=== PATIENT | female | born 1970 | race Caucasian/White ===

== ENCOUNTER 2022-09-03 09:56 | Day surgery (SDC) | payer OTHER ==
[2022-08-29 12:13] VITALS: BMI 27.4
[2022-09-03] MEDS ORDERED: LIDOCAINE HCL 2% (20ML MULTI-DOSE VIAL) ONE (11:45)
[2022-09-03] MEDS ORDERED: PROPOFOL 20 ML ONE ×2 (11:54→12:20)
[2022-09-03] MEDS ORDERED: MIDAZOLAM HCL 2 MG/2 ML SINGLE DOSE VIAL ONE (11:54)
[2022-09-03] MEDS ORDERED: DEXAMETHASONE SOD PHOSPHATE 4 MG/1 ML VIAL ONE (11:55)
[2022-09-03] MEDS ORDERED: ONDANSETRON 4 MG/2 ML VIAL ONE (11:55)
[2022-09-03] MEDS ORDERED: KETOROLAC TROMETHAMINE 30 MG/1 ML VIAL ONE (12:29)
[2022-09-03] MEDS ORDERED: oxyCODONE HCL 5 MG TABLET PO PRN (13:09)
[2022-09-03] MEDS ORDERED: ONDANSETRON 4 MG/2 ML VIAL IVPUSH PRN (13:09)
[2022-09-03] MEDS ORDERED: LACTATED RINGERS SOLUTION 1,000 ML IV SCH (13:15)
[2022-09-03 14:16] VITALS: RESP 18; TEMP 97.9
[2022-09-03 15:02] VITALS: BP 129/78
[2022-09-03 15:03] VITALS: PULSE 80
== END 2022-09-03 14:45 | disposition home or self-care (01) ==
LOC: FASU 09:56
PROVIDERS: ATTEND Orthopaedic Surgery Hand Surgery
PROC: 0LB60ZZ Excision of Left Lower Arm and Wrist Tendon, Open Approach (ICD-10-PCS; 2022-09-03)
PROC: 0RBP0ZZ Excision of Left Wrist Joint, Open Approach (ICD-10-PCS; principal; 2022-09-03 12:16)
DX: M67.432 Ganglion, left wrist (principal)
CPT/HCPCS: 84703; 88305-TC; 94760